=== PATIENT | male | born 1965 | race Hispanic/Latino ===

== ENCOUNTER 2021-05-30 08:46 | Day surgery (SDC) | payer OTHER ==
[2021-05-28 09:49] LABS: BASOPHILS % (AUTO) 0.5 % (0.0-5.0); HEMATOCRIT 44.1 % (42-54); LYMPHOCYTES % (AUTO) 43.2 % (21.0-51.0); MEAN CORPUSCULAR HEMOGLOBIN 31.6 pg (27.0-33.0); MEAN CORPUSCULAR HGB CONC 34.9 g/dL (32.0-36.0); MEAN CORPUSCULAR VOLUME 90.6 fL (79-99); MONOCYTES % (AUTO) 11.3 % (3.0-13.0); NEUTROPHILS % (AUTO) 42.5 % (40.0-77.0); PLATELET COUNT (AUTO) 219 K/uL (130-400); RED BLOOD CELL COUNT(AUTO) 4.87 MIL/uL (4.50-6.20); RED CELL DISTRIBUTION WIDTH 13.4 % (11.0-15.5); WHITE BLOOD COUNT (AUTO) 3.9 K/uL (4.8-10.8)
[2021-05-28 09:57] LABS: CREATININE 0.8 mg/dL (0.5-1.5); POTASSIUM 3.9 mmol/L (3.5-5.1)
[2021-05-28 10:02] LABS: INR 0.97 (0.85-1.15); PROTHROMBIN TIME 10.6 SEC (9.6-11.6)
[2021-05-28 10:04] LABS: PARTIAL THROMBOPLASTIN TIME 27.8 SEC (26.3-35.5)
[~2021-05-30] VITALS: Ht 167.6 cm; Wt 86.2 kg
[2021-05-30] VITALS (15 sets, daily range): BP systolic 110–139; BP diastolic 60–88
[~2021-05-30 08:46] MED LIST: CEFAZOLIN SODIUM 1 GM VIAL IVP SCH; LISI10TA24 PO
[2021-05-30] MEDS ORDERED: LACTATED RINGERS 1000ML 1,000 ML IV ONE (10:19)
[2021-05-30] MEDS ORDERED: LIDOCAINE PF 100MG/5ML (2%) SYRINGE 5ML ONE (10:40)
[2021-05-30] MEDS ORDERED: MIDAZOLAM HCL 1 MG/ML 2ML VIAL ONE (10:40)
[2021-05-30] MEDS ORDERED: DEXAMETHASONE SOD PHOSPHATE 10MG/ML 1ML VIAL ONE (10:40)
[2021-05-30] MEDS ORDERED: SUCCINYLCHOLINE CHLORIDE 20 MG/ML 10 ML VIAL ONE (10:40)
[2021-05-30] MEDS ORDERED: GLYCOPYRROLATE 1 MG/5 ML SYRINGE ONE (10:41)
[2021-05-30] MEDS ORDERED: NEOSTIGMINE 5MG/5ML SYR IV ONE (10:41)
[2021-05-30] MEDS ORDERED: ROCURONIUM 10MG/1ML SYR 10 MG/ML ML ONE (10:41)
[2021-05-30] MEDS ORDERED: FENTANYL CITRATE PF 50 MCG/1 ML 2ML VIAL ONE ×3 (10:41→12:18)
[2021-05-30] MEDS ORDERED: PROPOFOL 10 MG/ML 20ML VIAL IV ONE (10:41)
[2021-05-30] MEDS ORDERED: ONDANSETRON 4MG INJ ONE ×2 (10:41→13:39)
[2021-05-30] MEDS ORDERED: CEFAZOLIN SODIUM 2 GM VIAL IV ONE (10:46)
[2021-05-30] MEDS ORDERED: OXYMETAZOLINE HCL SPRAY 15 ML BOTTLE ONE (10:53)
[2021-05-30] MEDS ORDERED: LIDOCAINE 1%-EPI 1:100,000 20 ML VIAL IJ ONE (11:05)
[2021-05-30] MEDS ORDERED: EPHEDRINE SULFATE 50 MG/ML AMPULE ONE (11:31)
[2021-05-30] MEDS ORDERED: PHENYLEPHRINE HCL 10 MG/ML 1ML VIAL IV ONE (12:26)
[2021-05-30] MEDS ORDERED: BACITRACIN 28.4 GM OINT TP ONE (12:51)
== END 2021-05-30 14:35 | disposition home or self-care (01) ==
LOC: DAH 08:46
PROVIDERS: ATTEND Otolaryngology Plastic Surgery within the Head & Neck
DX: C30.0 Malignant neoplasm of nasal cavity (principal); Z20.822 Contact with and (suspected) exposure to COVID-19; I10 Essential (primary) hypertension; Z79.01 Long term (current) use of anticoagulants; Z79.899 Other long term (current) drug therapy; Z90.49 Acquired absence of other specified parts of digestive tract; Z98.890 Other specified postprocedural states; Z87.891 Personal history of nicotine dependence; Z85.038 Personal history of other malignant neoplasm of large intestine
CPT/HCPCS: 11643; 36415; 80048; 85025; 85610; 85730; 87635; A4215; A4221; A4222; A4223; A4606; A4663; C9803; J0330; J0690 ×2; J1100; J2001; J2250; J2370; J2405 ×2; J2704; J2710; J3010 ×3; J3490 ×3; J7120

== ENCOUNTER 2021-09-05 06:35 | Day surgery (SDC) | payer OTHER ==
[2021-09-03 13:31] LABS: BASOPHILS % (AUTO) 0.2 % (0.0-5.0); HEMATOCRIT 45.6 % (42-54); LYMPHOCYTES % (AUTO) 35.2 % (21.0-51.0); MEAN CORPUSCULAR HEMOGLOBIN 31.4 pg (27.0-33.0); MEAN CORPUSCULAR HGB CONC 35.1 g/dL (32.0-36.0); MEAN CORPUSCULAR VOLUME 89.4 fL (79-99); MONOCYTES % (AUTO) 11.5 % (3.0-13.0); NEUTROPHILS % (AUTO) 50.9 % (40.0-77.0); PLATELET COUNT (AUTO) 245 K/uL (130-400); WHITE BLOOD COUNT (AUTO) 4.6 K/uL (4.8-10.8)
[2021-09-03 13:41] LABS: CREATININE 0.8 mg/dL (0.5-1.5); INR 0.93 (0.85-1.15); POTASSIUM 3.8 mmol/L (3.5-5.1); PROTHROMBIN TIME 10.1 SEC (9.6-11.6)
[2021-09-03 13:42] LABS: PARTIAL THROMBOPLASTIN TIME 27.5 SEC (26.3-35.5)
[2021-09-04 09:41] VITALS: BP 151/93
[2021-09-05] VITALS (15 sets, daily range): BP systolic 112–141; BP diastolic 59–93
[~2021-09-05] VITALS: Ht 167.6 cm; Wt 81.5 kg
[~2021-09-05 06:35] MED LIST changes: +IBUP-2077 PO
[2021-09-05] MEDS ORDERED: LACTATED RINGERS 1000ML 1,000 ML IV ONE (06:37)
[2021-09-05] MEDS ORDERED: LIDOCAINE 1%-EPI 1:100,000 20 ML VIAL IJ ONE (06:59)
[2021-09-05] MEDS ORDERED: BACITRACIN 28.4 GM OINT TP ONE (06:59)
[2021-09-05] MEDS ORDERED: LIDOCAINE PF 100MG/5ML (2%) SYRINGE 5ML ONE (07:22)
[2021-09-05] MEDS ORDERED: FENTANYL CITRATE PF 50 MCG/1 ML 2ML VIAL ONE (07:22)
[2021-09-05] MEDS ORDERED: ROCURONIUM 10MG/1ML SYR 10 MG/ML ML ONE (07:22)
[2021-09-05] MEDS ORDERED: SUCCINYLCHOLINE 200MG/10ML SYR ONE (07:22)
[2021-09-05] MEDS ORDERED: PROPOFOL 10 MG/ML 20ML VIAL IV ONE (07:22)
[2021-09-05] MEDS ORDERED: OXYMETAZOLINE HCL SPRAY 15 ML BOTTLE ONE (08:11)
[2021-09-05] MEDS ORDERED: PHENYLEPHRINE HCL 10 MG/ML 1ML VIAL IV ONE (08:22)
[2021-09-05] MEDS ORDERED: 0.9%NACL 10ML VIAL ONE (08:22)
[2021-09-05] MEDS ORDERED: EPHEDRINE SULFATE 50 MG/ML AMPULE ONE (08:42)
[2021-09-05] MEDS ORDERED: GLYCOPYRROLATE 1 MG/5 ML SYRINGE ONE (09:17)
[2021-09-05] MEDS ORDERED: NEOSTIGMINE 5MG/5ML SYR IV ONE (09:17)
[2021-09-05] MEDS ORDERED: KETOROLAC 30MG VIAL (30MG/ML) ONE (09:18)
[2021-09-05] MEDS ORDERED: ONDANSETRON 4MG INJ ONE (09:52)
== END 2021-09-05 11:00 | disposition home or self-care (01) ==
LOC: DAH 06:35
PROVIDERS: ATTEND Otolaryngology Plastic Surgery within the Head & Neck
DX: C30.0 Malignant neoplasm of nasal cavity (principal); I10 Essential (primary) hypertension; Z79.01 Long term (current) use of anticoagulants; Z79.899 Other long term (current) drug therapy; Z85.038 Personal history of other malignant neoplasm of large intestine; Z98.890 Other specified postprocedural states; Z90.49 Acquired absence of other specified parts of digestive tract; Z87.891 Personal history of nicotine dependence
CPT/HCPCS: 11642; 36415; 71045; 80048; 85025; 85610; 85730; 87635; 93005; A4215; A4221; A4222; A4223; A4606; A4663; C9803; J0330; J0690; J1885; J2001; J2370; J2405; J2704; J2710; J3010; J3490 ×3; J7120